=== PATIENT | male | born 1990 | race American Indian/Alaskan Native ===

== ENCOUNTER 2017-05-03 08:41 | Emergency (ER) | payer SELFPAY ==
[2017-05-03 09:54] LABS: Basophils % (Auto) 0.3 % (0.0-1.8); Eosinophils % (Auto) 0.3 % (0.0-4.3); Hemoglobin 16.5 gm/dl (11.8-15.2); Mean Corpuscular HGB Conc 34 % (32-34); Mean Corpuscular Hemoglobin 32 pg (28-32); Mean Corpuscular Volume 93 fl (84-94); Platelet Count 218 K/mm3 (140-440); Red Blood Count 5.15 M/mm3 (3.65-5.03); Red Cell Distribution Width 12.8 % (13.2-15.2); White Blood Count 7.7 K/mm3 (4.5-11.0)
[2017-05-03 10:10] LABS: Anion Gap 17 mmol/L; BUN/Creatinine Ratio 13.07; Blood Urea Nitrogen 17 mg/dL (9-20); Calcium 9.3 mg/dL (8.4-10.2); Carbon Dioxide 26 mmol/L (22-30); Chloride 101.4 mmol/L (98-107); Glucose 111 mg/dL (75-100); Potassium 4.1 mmol/L (3.6-5.0); Sodium 140 mmol/L (137-145)
--- NOTE | 2017-05-03 10:40 | XRay Report ---
Chest 2 views: History: Chest pain, shortness of breath. Findings: Normal cardiomediastinal silhouette. Trachea is midline. No consolidation, pneumothorax or pleural effusion. Impression: No acute cardiopulmonary findings.
[2017-05-03] MEDS ORDERED: NACL 0.9% 250ML 250 ML IV ONE (20:05)
[2017-05-03] MEDS ORDERED: TORADOL IV ONE (20:05)
--- NOTE | 2017-05-03 20:06 | Emergency Department Report ---
ED Chest Pain HPI - General Chief Complaint: Chest Pain Stated Complaint: CHEST PAIN Time Seen by Provider: 05/03/17 19:48 Source: patient, RN notes reviewed Mode of arrival: Ambulatory Limitations: No Limitations - History of Present Illness Initial Comments: This is a 26-year-old male, who was previously unknown to this provider. Patient does not have a primary care doctor and endorses a history of asthma. The patient presents to the ER with a complaint of chest pain this morning, which radiated to his back and right shoulder. The pain increases with deep inspiration, stretching, and laying down. The patient endorses decreased exercise tolerance. Admits to mild cough, sore throat recently. There is no leg pain, there is no leg swelling, no recent trips greater than 4 hours, no recent hospital admissions. He denies cocaine use and aspirin use, and he reports that he is typically able to work out vigorously. MD Complaint: chest pain -: hour(s) Pain Location: substernal Pain Radiation: RUE, back Severity scale (0 -10): 7 Consistency: intermittent Improves With: rest, leaning foward Worsens With: exertion, inspiration, supine, movement Context: recent illness re: dyspnea Treatments Prior to Arrival: none Aspirin use within the Past 7 Days: (0) No - Related Data On Oral Contraceptives: No Previous Rx's Medication Instructions Recorded Last Taken Type Ketorolac [Toradol] 10 mg PO Q6H PRN #20 tablet 05/03/17 Unknown Rx Allergies Allergy/AdvReac Type Severity Reaction Status Date / Time shellfish derived Allergy Swelling Verified 05/03/17 09:21 Heart Score - HEART Score History: Slightly suspicious EKG: Non-specific Age: < 45 Risk factors: No known risk factors Troponin: < normal limit HEART Score: 1 - Critical Actions Critical Actions: 0-3 pts:0.9-1.7%risk of adverse cardiac event.Candidate for discharge ED Review of Systems ROS: Stated complaint: CHEST PAIN Other details as noted in HPI Constitutional: denies: fever Eyes: denies: vision change ENT: denies: epistaxis Respiratory: see HPI Cardiovascular: chest pain Gastrointestinal: denies: vomiting Genitourinary: denies: dysuria Musculoskeletal: denies: back pain Skin: denies: lesions Neurological: denies: headache Psychiatric: as per HPI ED Past Medical Hx - Past Medical History Hx Asthma: Yes - Surgical History Past Surgical History?: No - Social History Smoking Status: Never Smoker Substance Use Type: Alcohol - Medications Home Medications: Home Medications Medication Instructions Recorded Confirmed Last Taken Type Ketorolac [Toradol] 10 mg PO Q6H PRN #20 tablet 05/03/17 Unknown Rx ED Physical Exam - General Limitations: No Limitations General appearance: alert, in no apparent distress - Head Head exam: Present: atraumatic, normocephalic - Eye Eye exam: Present: normal appearance, EOMI. Absent: nystagmus - ENT ENT exam: Present: normal exam, normal orophraynx, mucous membranes moist, normal external ear exam - Neck Neck exam: Present: normal inspection, full ROM. Absent: tenderness, meningismus - Respiratory Respiratory exam: Present: normal lung sounds bilaterally. Absent: respiratory distress, wheezes, rales, rhonchi, stridor, chest wall tenderness, accessory muscle use, decreased breath sounds, prolonged expiratory - Cardiovascular Cardiovascular Exam: Present: regular rate, normal rhythm, normal heart sounds. Absent: bradycardia, tachycardia, irregular rhythm, systolic murmur, diastolic murmur, rubs, gallop - GI/Abdominal GI/Abdominal exam: Present: soft, normal bowel sounds. Absent: distended, tenderness, guarding, rebound, rigid, pulsatile mass - Rectal Rectal exam: Present: deferred - Extremities Exam Extremities exam: Present: normal inspection, full ROM, normal capillary refill. Absent: tenderness, pedal edema, joint swelling, calf tenderness - Back Exam Back exam: Present: normal inspection, full ROM. Absent: tenderness, CVA tenderness (R), CVA tenderness (L), muscle spasm, paraspinal tenderness, vertebral tenderness - Neurological Exam Neurological exam: Present: alert, oriented X3, normal gait, other (Extraocular movements intact. Tongue midline. No facial droop. Facial sensation intact to light touch in the V1, V2, V3 distribution bilaterally. 5 and 5 strength in 4 extremities.. Sensation is intact to light touch in 4 extremities.). Absent : motor sensory deficit - Psychiatric Psychiatric exam: Present: normal affect, normal mood - Skin Skin exam: Present: warm, dry, intact, normal color. Absent: rash ED Course Vital Signs 05/03/17 05/03/17 05/03/17 09:14 13:20 19:31 Temperature 98.9 F 98.3 F Pulse Rate 96 H 99 H 96 H Respiratory 22 20 16 Rate Blood Pressure 131/77 135/79 Blood Pressure 136/86 [Right] O2 Sat by Pulse 98 100 99 Oximetry 05/03/17 05/03/17 22:00 23:00 Temperature 98.2 F 98.4 F Pulse Rate 116 H 84 Respiratory 18 16 Rate Blood Pressure Blood Pressure 142/80 138/88 [Right] O2 Sat by Pulse 99 98 Oximetry - Reevaluation(s) Reevaluation #1: 05/03/17 20:36 Differential diagnosis: Pulmonary hypertension, pulmonary embolus, pneumonia, structural cardiac disease, tampanode, cardiomyopathy, pericarditis Assessment and plan: 26-year-old male with chest pain, shortness of breath, pain that is worse when supine, abnormal EKG with a right axis deviation, no prior for comparison. Troponins negative, no pulmonary embolus or DVT risk factors, however moderate risk by well's criteria, therefore CT scan of the chest was ordered. Not especially concerned about obstructive coronary artery disease, patient did report mild recent cold-like symptoms, he had cardiomyopathy/pericarditis. On my bedside ultrasound, I do not appreciate a large effusion, And there appears to be appropriate LV contractility. He is not hemodynamically unstable at this time, he does not have alleged physical instability, and he does not have severe work of breathing, thereforei do not believe the patient requires emergent cardiology consult this evening. 05/03/17 23:09 Reevaluation #2: 05/03/17 22:51 CT scan of the chest is negative. Technically limited study, however the large pulmonary arteries are excluded of thromboembolic disease, and cardiac anatomy appears to be within normal limits. Patient feels much improved after pain medication. He is able to ambulate without significant desaturation. Extensive discussion had with the patient. I did offer the patient admission to receive an echocardiogram, but also discussed with the patient that he would be reasonable to follow up with an outpatient commodity management specialist. The patient much prefers to follow-up as an outpatient, he is reliable, he is hemodynamically stable, with no saline work of breathing, understands that he can follow-up, or return to the ER. ADAIR score - Adair Score Age > 65: (0) No Aspirin use within the Past 7 Days: (0) No 3 or more CAD Risk Factors: (0) No 2 or more Angina events in past 24 hrs: (0) No Known CAD with more than 50% Stenosis: (0) No Elevated Cardiac Markers: (0) No ST Deviation Greater than 0.5mm: (0) No ADAIR Score: 0 ED Medical Decision Making - Lab Data Result diagrams: 05/03/17 09:24 05/03/17 09:24 Vital Signs 05/03/17 05/03/17 05/03/17 09:14 13:20 19:31 Temperature 98.9 F 98.3 F Pulse Rate 96 H 99 H 96 H Respiratory 22 20 16 Rate Blood Pressure 131/77 135/79 Blood Pressure 136/86 [Right] O2 Sat by Pulse 98 100 99 Oximetry 05/03/17 05/03/17 22:00 23:00 Temperature 98.2 F 98.4 F Pulse Rate 116 H 84 Respiratory 18 16 Rate Blood Pressure Blood Pressure 142/80 138/88 [Right] O2 Sat by Pulse 99 98 Oximetry Lab Results 05/03/17 05/03/17 05/03/17 Range/Units 09:24 09:24 11:50 WBC 7.7 (4.5-11.0) K/mm3 RBC 5.15 H (3.65-5.03) M/mm3 Hgb 16.5 H (11.8-15.2) gm/dl Hct 48.0 H (35.5-45.6) % MCV 93 (84-94) fl MCH 32 (28-32) pg MCHC 34 (32-34) % RDW 12.8 L (13.2-15.2) % Plt Count 218 (140-440) K/mm3 Lymph % (Auto) 14.8 (13.4-35.0) % Terrell % (Auto) 7.1 (0.0-7.3) % Eos % (Auto) 0.3 (0.0-4.3) % Baso % (Auto) 0.3 (0.0-1.8) % Lymph # 1.1 L (1.2-5.4) K/mm3 Terrell # 0.5 (0.0-0.8) K/mm3 Eos # 0.0 (0.0-0.4) K/mm3 Baso # 0.0 (0.0-0.1) K/mm3 Seg Neutrophils % 77.5 H (40.0-70.0) % Seg Neutrophils # 6.0 (1.8-7.7) K/mm3 PT (12.2-14.9) Sec. INR (0.87-1.13) APTT (24.2-36.6) Sec. D-Dimer (0-234) ng/mlDDU Sodium 140 (137-145) mmol/L Potassium 4.1 (3.6-5.0) mmol/L Chloride 101.4 (98-107) mmol/L Carbon Dioxide 26 (22-30) mmol/L Anion Gap 17 mmol/L BUN 17 (9-20) mg/dL Creatinine 1.3 (0.8-1.5) mg/dL Estimated GFR > 60 ml/min BUN/Creatinine Ratio 13.07 % Glucose 111 H (75-100) mg/dL Calcium 9.3 (8.4-10.2) mg/dL Total Creatine Kinase (55-170) units/L Troponin T < 0.010 < 0.010 (0.00-0.029) ng/mL 05/03/17 05/03/17 05/03/17 Range/Units 17:19 20:15 20:15 WBC (4.5-11.0) K/mm3 RBC (3.65-5.03) M/mm3 Hgb (11.8-15.2) gm/dl Hct (35.5-45.6) % MCV (84-94) fl MCH (28-32) pg MCHC (32-34) % RDW (13.2-15.2) % Plt Count (140-440) K/mm3 Lymph % (Auto) (13.4-35.0) % Terrell % (Auto) (0.0-7.3) % Eos % (Auto) (0.0-4.3) % Baso % (Auto) (0.0-1.8) % Lymph # (1.2-5.4) K/mm3 Terrell # (0.0-0.8) K/mm3 Eos # (0.0-0.4) K/mm3 Baso # (0.0-0.1) K/mm3 Seg Neutrophils % (40.0-70.0) % Seg Neutrophils # (1.8-7.7) K/mm3 PT 13.6 (12.2-14.9) Sec. INR 1.05 (0.87-1.13) APTT 30.9 (24.2-36.6) Sec. D-Dimer < 135.00 (0-234) ng/mlDDU Sodium (137-145) mmol/L Potassium (3.6-5.0) mmol/L Chloride (98-107) mmol/L Carbon Dioxide (22-30) mmol/L Anion Gap mmol/L BUN (9-20) mg/dL Creatinine (0.8-1.5) mg/dL Estimated GFR ml/min BUN/Creatinine Ratio % Glucose (75-100) mg/dL Calcium (8.4-10.2) mg/dL Total Creatine Kinase 474 H (55-170) units/L Troponin T < 0.010 (0.00-0.029) ng/mL - Radiology Data Radiology results: report reviewed, image reviewed interpreted by me: X-ray of the chest is negative. CT scan of the chest is negative for pulmonary embolus, dissection, pneumonia, hemothorax, pneumothorax. Technically limited study OF the distal pulmonary arteries. Critical care attestation.: If time is entered above; I have spent that time in minutes in the direct care of this critically ill patient, excluding procedure time. ED Disposition Clinical Impression: Chest pain, Dyspnea Disposition: - TO HOME OR SELFCARE Is pt being admited?: No Condition: Good Instructions: Chest Pain (ED) Additional Instructions: Take the pain medication as directed. Follow up with either at the listed health program specialist within the next 5 days. Return to the ER right away with new pain, worse pain, migration of pain, fevers, chills, lethargy, irritability , projectile vomiting, change in mental status, inability to tolerate liquid feeds. Prescriptions: Ketorolac [Toradol] 10 mg PO Q6H PRN #20 tablet PRN Reason: Pain Referrals: PRIMARY CARE, [Primary Care Provider] - 3-5 Days [facility] [Provider Group] - 3-5 Days [facility] [Provider Group] - 3-5 Days Forms: Work/School Release Form(ED)
[2017-05-03 20:38] LABS: INR 1.05 (0.87-1.13)
[2017-05-03 20:39] LABS: Partial Thromboplastin Time 30.9 Sec. (24.2-36.6)
[2017-05-03] MEDS ORDERED: NACL ONE (21:02)
--- NOTE | 2017-05-03 22:09 | Cat Scan Report ---
FINAL REPORT PROCEDURE: CT ANGIO CHEST TECHNIQUE: Computerized axial tomographic angiography of the chest and pulmonary arteries was performed after the IV injection of iodinated nonionic contrast. The image data was postprocessed using maximum intensity projection (MIP) and 2-dimensional multiplanar reformatted (MPR) techniques. The examination is specifically tailored to the evaluation of the pulmonary arteries per clinical request. HISTORY: Short of breath 786.09, chest pain 786.50 COMPARISON: No prior studies are available for comparison. FINDINGS: Heart and pericardium: Heart is borderline in size. No pericardial effusion or thickening. Thoracic aorta: No aneurysm or dissection. Pulmonary vasculature: Limited evaluation of distal-most branches, otherwise no evidence of pulmonary emboli. Lymph nodes: No enlarged thoracic lymph nodes. Lungs: Normal. Pleural space: No effusion, thickening, or pneumothorax. Musculoskeletal structures: No significant abnormality. Upper abdominal structures: No significant abnormality. IMPRESSION: Limited evaluation of distal most pulmonary arterial branches, otherwise no evidence of pulmonary emboli.
[2017-05-03] MEDS ORDERED: BABY ASPIRIN PO ONE (22:51)
[2017-05-03 23:40] VITALS: BP 138/88
== END 2017-05-03 23:23 | disposition home or self-care (01) ==
LOC: ED 08:41
DX: R07.89 Other chest pain (principal); R06.00 Dyspnea, unspecified; Z91.013 Allergy to seafood
CPT/HCPCS: 36415; 71020; 71275; 80048; 82550; 84484; 85025; 85379; 85610; 85730; 93005; 93010; 96374; 99285; J1885; J7050; Q9967